=== PATIENT | male | born 1960 | race Caucasian/White ===

== ENCOUNTER 2017-04-12 12:56 | Emergency (ER) | payer OTHER ==
[2017-04-12 12:56] VITALS: BP 0/0
[2017-04-12] MEDS ORDERED: EPINEPHrine HCL 1 MG/10 ML SYRG IV ONE (12:57)
[2017-04-12] MEDS ORDERED: CALCIUM CHLOR(10%) 100MG/ML 10ML SYRINGE IV ONE (12:57)
[2017-04-12] MEDS ORDERED: SODIUM BICARBONATE 8.4% INJ 50ML SYRINGE IV ONE (12:57)
== END 2017-04-12 15:15 | disposition expired ==
LOC: ER 12:56 → EDBD 12:56 → ER 15:15
DX: I46.9 Cardiac arrest, cause unspecified (principal); K92.2 Gastrointestinal hemorrhage, unspecified; Z85.818 Personal history of malignant neoplasm of other sites of lip, oral cavity, and pharynx
CPT/HCPCS: 92950; 99291; J0171